=== PATIENT | male | born 1950 | race Caucasian/White ===

== ENCOUNTER 2022-08-18 10:27 | Emergency (ER) | payer MEDICARE, SELFPAY ==
[2022-08-18 10:27] VITALS: PULSE 0; RESP 0; O2SAT 86
--- NOTE | 2022-08-18 10:43 | ED.GENADULT ---
HPI - General Adult General Chief complaint: Cardiac Arrest/CPR Stated complaint: ambulance Time Seen by Provider: 08/18/22 10:29 History of Present Illness HPI narrative: If the patient is a 72-year-old male with no significant past medical history. He has not seen a medical provider in some time. He works on a farm. Per family, the patient complained of lower back pain last night at 9:00 p.m.. He did have a syncopal episode last night that he declined to come in for according to his family. Today, he had continued low back pain radiating to the left lower quadrant of his abdomen. He did not feel well. EMS was notified at 9:03 a.m. per family. Upon their arrival, the patient was uncomfortable, thrashing about. He did have an initial pulse of 25 then 120 and then had cardiac arrest with loss of spontaneous circulation. CPR was initiated at the field at 9:50 a.m.. The patient received a total of 8 mg of epinephrine in 8 doses and 1 ampule of bicarb prior to arrival. CPR was continued using the Adalid device prior to arrival. There was never any return of spontaneous cardiac activity. There was no indication for the fibrillation in the field. An IO had been placed by the EMS crew in the right lower leg. The I-gel was used for advanced airway. There was emesis noted in the oropharynx. He was brought here in full cardiac arrest, active CPR. Related Data Home Medications Medication Instructions Recorded Confirmed No Home Medications 08/18/22 08/18/22 Allergies Allergy/AdvReac Type Severity Reaction Status Date / Time No Known Allergies Allergy Verified 08/18/22 10:48 Review of Systems Review of Systems: ROS unobtainable: Yes unobtainable due to endotracheal tube, unobtainable due to medical condition and unobtainable due to mental status Exam Narrative: limited exam secondary to CPR Const: Other: active CPR with a Adalid device HENMT: Other: I-Gel in place, emesis in the oropharynx Eyes: Other: pupils fixed and dilated Neck: Other: no signs of trauma Chest: Other: unremarkable Resp: Other: no spontaneous respiratory activity. Coarse breath sounds bilaterally with the I-Gel Cardio: Other: no spontaneous cardiac activity GI: Other: abdomen distended, no tympany : Other: circumcised Back/Spine/Pelvis: Other: unable to assess Skin: Other: no signs of trauma Neuro: Other: no signs of spontaneous neurologic activity Extrem: Other: no signs of trauma. no spontaneous movement Psych: Other: unable to assess Course Course Emergency Course: 72-year-old male who suffered a cardiac arrest in the field, after complaining of lower back pain and lower abdominal pain, concerning for possible abdominal aortic aneurysm that has ruptured. No prior diagnosis of any significant medical conditions as he has not seen a medical provider in some time. He has received 8 mg of epinephrine and 1 ampule of bicarbonate in the field. He presents to the ER in full cardiac arrest, no spontaneous cardiac activity, asystole per the EMS providers. I gel in place. IO in place. Adalid device performing CPR per protocol The patient received 2 additional ampules of epinephrine in the emergency room, 1 amp of bicarb, 1 amp of calcium chloride. There was never any return of spontaneous cardiac activity. The case was discussed with the family. The patient was declared at 10:39 a.m.. The elevated motorman was notified. The elevated motorman has released the case. I conveyed my condolences to the family for their loss. Vital Signs Vital signs: Vital Signs Pulse Rate 0 L 08/18/22 10:27 Respiratory Rate 0 L 08/18/22 10:27 Pulse Oximetry 86 L 08/18/22 10:27 Oxygen Delivery Mechanical Ventilation 08/18/22 10:27 Oxygen Flow Rate 15 08/18/22 10:27 Pulse Rate 0 L 08/18/22 10:27 Respiratory Rate 0 L 08/18/22 10:27 Pulse Oximetry 86 L 08/18/22 10:27 Oxygen Delivery Mechanica
--- NOTE | 2022-08-18 11:29 | PC.NURSE ---
1027-pt arrived from home per ems in full arrest. stan in place and providing compressions. Igel in place ventilations per resp therapy per ambu bag at 15L oxygen. pt pale and cyanotic. pupils fixed and dilated. abd distended. ns iv w/o infusing through IO in left lower leg. code blue team at bedside. 1029-stan paused et asystole noted without pulse. stan compressions resumed. 1034-stan paused et asystole noted without pulse. stan compressions resumed. blood noted in Igel. 1038-stan paused et asystole noted without pulse. stan compressions resumed. erp speaking with family. 1039-resuscitation efforts stopped. time of :1039
--- NOTE | 2022-08-18 11:42 | PC.NURSE ---
1050-katie resendiz manager fraud contacted. pt case described. manager fraud released body to home. approved removal of all tubes/appliances. 1105-[facility] contacted. pt information provided. 1115-pt cleaned and all tubes and appliances removed. belongings recorded. 1125-family at bedside with pt. 1135-son signed body release. family left the building. will await call from director funeral 1136-[facility] home contacted per family request. awaiting return call from director funeral
--- NOTE | 2022-08-18 12:12 | PC.NURSE ---
[facility] will [facility] soon to [facility]. 120[facility] staff arrived to collect pt. 1210-body release signed.
== END 2022-08-18 10:39 | disposition expired ==
PROVIDERS: Emergency Provider Emergency Medicine
DX: I46.9 Cardiac arrest, cause unspecified (principal)
CPT/HCPCS: 92950; 99285; J0171